=== PATIENT | female | born 1990 | race Hispanic/Latino ===

== ENCOUNTER 2018-11-14 08:08 | Outpatient (CLI) | payer OTHER ==
--- NOTE | 2018-11-14 10:43 | CT ---
CT OF THE ABDOMEN AND PELVIS WITH IV CONTRAST INDICATION: History of ulcerative colitis and abdominal pain predominantly right-sided COMPARISON: None FINDINGS: ABDOMEN: Lung bases: Clear Liver: No focal lesion. Gallbladder: Normal appearing. Pancreas: Normal. Adrenal glands: Normal. Spleen: Normal. Kidneys: Normal. Retroperitoneum of the upper abdomen: No lymphadenopathy or free fluid is identified. Pelvis: Small and large bowel: There is a moderate amount of retained stool within the colon. There is a norm al appendix in the right lower quadrant. The small bowel is of normal caliber. Bladder: Normal. Rectal and perirectal soft tissues:Normal. Reproductive structures: There is a 3.6 x 3.3 cm cyst within the left adnexa. Free fluid in pelvis: No free fluid is evident. Lymphadenopathy pelvis: No lymphadenopathy is evident. Osseous structures: Mild leftward curvature of the thoracolumbar spine may be positional. No acute fr acture or subluxation demonstrated. IMPRESSION: 1. No active inflammatory change seen involving the rectum or large bowel. There is a moderate amount of retained stool within colon slightly limiting the exam. 2. Left adnexal cysts. 3. Slight leftward curvature of the thrombosed lumbar spine may be positional in nature.
[2018-11-14] MEDS ORDERED: ISOVUE-370 76%-LOCM 1 ML ONE (11:03)
== END 2018-11-14 08:09 | disposition home or self-care (01) ==
LOC: BICCT 08:08
PROVIDERS: ATTEND Family Medicine
DX: R10.9 Unspecified abdominal pain (principal); K59.00 Constipation, unspecified; N83.8 Other noninflammatory disorders of ovary, fallopian tube and broad ligament; M43.9 Deforming dorsopathy, unspecified
CPT/HCPCS: 74177; Q9966